=== PATIENT | male | born 1965 | race Caucasian/White ===

== ENCOUNTER → 2018-10-03 | Outpatient (CLI) | payer OTHER ==
--- NOTE | 2018-10-03 09:28 | PCVCIMAG ---
APPROVED REPORT Laterality: Bilateral Indications Stenosis Doppler Spectral Velocity Analysis PSV / EDVPSV / EDV ECA (R) 61 / 15 cm/sECA (L) 91 / 17 cm/s dICA (R) 60 / 27 cm/sdICA (L) 64 / 25 cm/s Eileen (R) 43 / 15 cm/smICA (L) 62 / 29 cm/s pICA (R) 44 / 16 cm/spICA (L) 51 / 20 cm/s Bulb (R) 76 / 16 cm/sBulb (L) 65 / 17 cm/s dCCA (R) 94 / 22 cm/sdCCA (L) 75 / 18 cm/s mCCA (R) 108 / 22 cm/smCCA (L) 83 / 19 cm/s Vert (R) 39 / 11 cm/sVert (L) 40 / 12 cm/s ICA/CCA 0.64ICA/CCA 0.85 Findings The right carotid bulb has no significant plaque. The right proximal internal carotid artery shows no significant stenosis. The right common carotid artery shows no significant stenosis. The right external carotid artery shows no significant stenosis. The left carotid bulb has minimal plaque. The left proximal internal carotid artery shows no significant stenosis. The left common carotid artery shows no significant stenosis. The left external carotid artery shows no significant stenosis. Conclusion 1. No significant stenosis involving either carotid artery. 2. Antegrade vertebral flow.
--- NOTE | 2018-10-03 15:38 | PCVCIMAG ---
APPROVED REPORT Study performed: 10/03/2018 10:59:52 Exam: Stress Echocardiogram Indication: Hyperlipidemia, Abnormal calcium score Patient Location: Echo lab Stress Nurse: Ольга Bill RN Status: routine Ht: 6 ft 2 in HR: 58 bpm BP: 100/80 mmHg Rhythm: NSR Medical History Medical History: Abnormal calcium score Procedure The patient underwent an Exercise Stress Test using the Tim Protocol. Blood pressure, heart rate, and EKG were monitored. An Echocardiogram was performed by refinery technician in four stages in quad fashion. At peak stress, four selected images were obtained and placed side by side with resting images for comparison. Stress Test Details Stress Test: Exercise stress testing was performed using a Tim protocol. HR Resting HR: 58 bpmMax Heart Rate (APMHR): 169 bpm Max HR Achieved: 179 bpmTarget HR (85% APMHR): 143 bpm % of APMHR: 105 Recovery HR: 99 bpm HR response to stress: Normal HR response to stress BP Resting BP: 100/80 mmHg Max BP: 146/70 mmHg Recovery BP: 120/70 mmHg BP response to stress: Normal blood pressure response to stress. ECG Resting ECG: Sinus Rhythm Stress ECG: Sinus Rhythm Clinical Reason for Termination: Maximal effort Exercise duration: 16 min 30 sec Highest Stage Achieved: Stage 6: 5.5 mph at 20% grade. Exercise capacity: 20.70 METs Overall Exercise Capacity for Age: Excellent Pre-Stress Echo The resting Echocardiogram showed normal left ventricular contractility with an estimated Ejection Fraction of about 55-60%. Normal wall motion in all segments on baseline images. Post-Stress Echo The stress Echocardiogram showed normal left ventricular contractility with an estimated Ejection Fraction of about 65-70%. Normal augmentation of wall motion in all segments on post stress images. Clinical No clinical or ECG evidence for ischemia. Conclusion Clinical Response: Non-ischemic Exercise Capacity: Superior Stress ECG Response: Non-ischemic Stress Echo Images: Non-ischemic The left ventricle is normal in size and wall thickness in both the rest and stress images. Other Information Study Quality: Good <Conclusion> The left ventricle is normal in size and wall thickness in both the rest and stress images.
== END | disposition home or self-care (01) ==
LOC: PCVCIMAG 08:46
PROVIDERS: ATTEND Family Medicine
DX: R09.89 Other specified symptoms and signs involving the circulatory and respiratory systems (principal); R93.1 Abnormal findings on diagnostic imaging of heart and coronary circulation; E78.5 Hyperlipidemia, unspecified
CPT/HCPCS: 93325; 93351; 93880